=== PATIENT | male | born 1990 | race Two or more races ===

== ENCOUNTER 2016-09-19 16:22 | Emergency (ER) | payer OTHER ==
[~2016-09-19] VITALS: Ht 185.4 cm; Wt 111.1 kg
[2016-09-19 16:24] VITALS: BP 151/111
[2016-09-19] MEDS ORDERED: FAMOTIDINE 20 MG TABLET ONE (17:13)
[2016-09-19] MEDS ORDERED: FAMOTIDINE 20 MG TABLET PO ONE (17:30)
[2016-09-19] MEDS ORDERED: hydrOXyzine 50MG TABLET PO ONE (17:30)
== END 2016-09-19 17:32 | disposition home or self-care (01) ==
LOC: ED 17:26
DX: T78.40XA Allergy, unspecified, initial encounter (principal); X58.XXXA Exposure to other specified factors, initial encounter; Y93.89 Activity, other specified; Y99.8 Other external cause status; Y92.89 Other specified places as the place of occurrence of the external cause
CPT/HCPCS: 99284; J7512